=== PATIENT | male | born 1980 | race Caucasian/White ===

== ENCOUNTER 2018-04-01 11:34 | Inpatient (IN) | payer OTHER ==
[2018-04-01 14:03] VITALS: BMI 24.3
--- NOTE | 2018-04-01 16:22 | HP ---
CIWA Score - CIWA Score Nausea/Vomitin-No Nausea/No Vomiting Muscle Tremors: 3 Anxiety: 4-Mod. Anxious/Guarded Agitation: 4-Moderately Restless Paroxysmal Sweats: 4-Forehead w/Sweat Beads Orientation: 0-Oriented Tacttile Disturbances: 0-None Auditory Disturbances: 0-None Visual Disturbances: 0-None Headache: 2-Mild CIWA-Ar Total Score: 17 Admission [facility] - HPI Chief Complaint: Here for alcohol detox. C/o withdrawal. Allergies/Adverse Reactions: Allergies Allergy/AdvReac Type Severity Reaction Status Date / Time No Known Allergies Allergy Verified 04/01/18 14:57 History of Present Illness: Hx Opiate used disorder since age 11. Currently on Suboxone 8/2mg TID with continued intermittent use of heroin. Last heroin use today, IV. Suboxone prescribed by Dr. Masterson at the [facility] . Also prescribed zolpidem for hx. sleep disorder Hx. Cocaine use since age 12. Currently uses daily IV. Here for alcohol detox and drinks 2- 6 packs beer and 1 pint Vodka daily. Berto has anxiety, bipolar and schizophrenia. Denies suicide/violent ideations. Buys street Klonopin for anxiety. Multiple detoxes for alcohol, heroin, and benzo. Exam Limitations: No Limitations - Ebola screening Have you traveled outside of the country in the last 21 days: No Have you had contact with anyone from an Ebola affected area: No Have you been sick,other than usual withdrawal symptoms: No Do you have a fever: No - Review of Systems Constitutional: Diaphoresis, Changes in sleep (Unable to sleep for years.) Respiratory: reports: Other (Hx. asthma since age 7. Symptoms include wheezing and coughing 2-3x/wk. Relieves w/ albuterol MDI) Cardiac: reports: No Symptoms Reported GI: reports: Indigestion (Heart burn for years. Rx'd w/ TUMS) : reports: No Symptoms Reported Musculoskeletal: reports: Joint Pain ((R) ankle painful to touch - states twisted it years ago.) Neuro: reports: Tremors Endocrine: reports: No Symptoms Reported Hematology: reports: Anemia (States hx. anemia - unknown type.) Psychiatric: reports: Orientated x3, Anxious (Has anxiety disorder.), other ( Hx. Schizophrenia and bipolar disorder. Currently on meds. Denies suicide or violent ideation.) Patient History - Patient Medical History Hx Asthma: Yes (Uses albuterol inhaler as needed 2-3 x/week. ) Hx Chronic Obstructive Pulmonary Disease (COPD): No Hx Cancer: No Hx Cardiac Disorders: No Hx Congestive Heart Failure: No Hx Hypertension: No Hx Hypercholesterolemia: No Hx Pacemaker: No HX Cerebrovascular Accident: No Hx Seizures: No Hx Diabetes: No Hx Gastrointestinal Disorders: No Hx Liver Disease: No Hx Genitourinary Disorders: No Hx Sexually Transmitted Disorders: No Hx Renal Disease (ESRD): No Hx Thyroid Disease: No Hx Hepatitis C: Yes (Was treated w/ Harvoni in 2017. ) Hx Depression: Yes (Denies suicide/violent ideation.) Hx Suicide Attempt: No Hx Bipolar Disorder: Yes Hx Schizophrenia: Yes - Patient Surgical History Past Surgical History: Yes Hx Neurologic Surgery: No Hx Cataract Extraction: No Hx Cardiac Surgery: No Hx Lung Surgery: Yes (chest tube, left) Hx Breast Surgery: No Hx Breast Biopsy: No Hx Abdominal Surgery: No Hx Appendectomy: No Hx Cholecystectomy: No Hx Genitourinary Surgery: No Hx Section: No Hx Orthopedic Surgery: Yes (fx, right leg in 2012) Anesthesia Reaction: No - PPD History Previous Implant?: Yes Documented Results: Negative w/o proof - Smoking Cessation Smoking history: Current every day smoker Have you smoked in the past 12 months: Yes Aproximately how many cigarettes per day: 10 Hx Chewing Tobacco Use: No Initiated information on smoking cessation: Yes 'Breaking Loose' booklet given: 04/01/18 - Substance & Tx. History Hx Alcohol Use: Yes Hx Substance Use: Yes Substance Use Type: Alcohol, Cocaine, Heroin, Marijuana, Opiates Hx Substance Use Treatment: Yes (Several detox attempts; currently on Suboxone.) - Substances Abused Heroin Route: Injection Frequency: 3-6 times per week Amount used: 2 bags Age of first use: 11 (Uses despite being on Suboxone) Date of Last Use: 04/01/18 (9 am ) Cocaine Route: Injection Frequency: Daily Amount used: $50-100 Age of first use: 12 Date of Last Use: 04/01/18 (w/heroin) Alcohol-beer/whisky Route: Oral Frequency: Daily Amount used: 2-6 pks. beer/1 liter vodka Age of first use: 9 Date of Last Use: 04/01/18 (1 pm) Benzodiazepine (Klonopin) Route: Oral Frequency: Daily Amount used: 2 Age of first use: 12 Date of Last Use: 04/01/18 (Also uses xanax) Marijuana/Hashish Route: Inhalation Frequency: 3-6 times per week Amount used: 1/4 blunt Age of first use: 11 Date of Last Use: 03/26/18 Family Disease History - Family Disease History Family Disease History: Heart Disease: Mother (Irregular beat, asthma ), Respiratory: Mother, Sister (asthma) Admission Physical Exam S - Vital Signs Vital Signs: Vital Signs - 24 hr 04/01/18 14:00 Temperature 97.9 F Pulse Rate 68 Respiratory 20 Rate Blood Pressure 128/58 - Physical General Appearance: Yes: Appropriately Dressed, Mild Distress, Tremorous, Sweating, Anxious HEENTM: Yes: EOMI, Hearing grossly Normal, Normal Voice, ROBERTO CARLOS Respiratory: Yes: Lungs Clear, Normal Breath Sounds, No Respiratory Distress, No Accessory Muscle Use Neck: Yes: No masses,lesions,Nodules, Supple Breast: Yes: Breast Exam Deferred Cardiology: Yes: Regular Rhythm, Regular Rate, S1, S2 Abdominal: Yes: Normal Bowel Sounds, Non Tender, Flat, Soft Genitourinary: Yes: Within Normal Limits Back: Yes: Within Normal Limits Musculoskeletal: Yes: Joint swelling (Mild swelling (R) ankle inner malleous. (+ ) tenderness upon palpation. FROM and FWB.) Extremities: Yes: Normal Capillary Refill, Tremors, Swelling (Mild non-pitting edema both hands (R) > (L). Cap refill less than 3 sec.) Neurological: Yes: chief orthoptist II-XII NML intact, Fully Oriented, Motor Strength 5/5 Integumentary: Yes: Dry (Dry skin and dry mucous membranes. Except for facial sweating.), Track Cox (both arms.) - Diagnostic (1) Heroin use disorder, moderate, on maintenance therapy, dependence Current Visit: Yes Status: Acute (2) Cocaine use disorder Current Visit: Yes Status: Acute (3) Alcohol withdrawal Current Visit: Yes Status: Acute Qualifiers: Complication of substance-induced condition: uncomplicated Qualified Code(s ): F10.230 - Alcohol dependence with withdrawal, uncomplicated (4) Moderate benzodiazepine use disorder Current Visit: Yes Status: Chronic (5) Tooth ache Current Visit: Yes Status: Acute (6) Cannabis use disorder, moderate, dependence Current Visit: Yes Status: Chronic (7) Asthma Current Visit: Yes Status: Chronic Qualifiers: Asthma persistence: unspecified Asthma complication type: unspecified (8) Nicotine use disorder Current Visit: Yes Status: Acute Cleared for Admission [facility] - Detox or Rehab [facility] Level of Care: Medically Managed Detox Regimen/Protocol: Valium S Breath Alcohol Content Breath Alcohol Content: 0 Urine Drug Screen - Results Drug Screen Negative: No Urine Drug Screen Results: THC-Marijuana, SIRENA-Cocaine, OPI-Opiates, BZO- Benzodiazepines
[2018-04-01] MEDS ORDERED: ALBUTEROL SO4 18 GM HFA INHALER IH PRN (17:49)
[2018-04-01] MEDS ORDERED: MAG HYDROX/AL HYDROX/SIMETH 30 ML UNIT-DOSE CUP PO PRN (18:02)
[2018-04-01] MEDS ORDERED: MENTHOL/PHENOL 1 EACH UD MM PRN (18:02)
[2018-04-01] MEDS ORDERED: IBUPROFEN 400 MG TABLET (FP) PO PRN (18:02)
[2018-04-01] MEDS ORDERED: guaiFENesin/D-METHORPHAN HB 10 ML UNIT-DOSE CUPS PO PRN (18:02)
[2018-04-01] MEDS ORDERED: LOPERAMIDE HCL 2 MG CAPSULE PO PRN (18:02)
[2018-04-01] MEDS ORDERED: P-EPHED 60MG/TRIPROLIDI 2.5MG TABLET PO PRN (18:02)
[2018-04-01] MEDS ORDERED: MAGNESIUM CITRATE 300 ML BOTTLE PO PRN (18:02)
[2018-04-01] MEDS ORDERED: hydrOXYzine PAMOATE 50 MG CAPSULE (FP) PO PRN (18:02)
[2018-04-01] MEDS ORDERED: MAGNESIUM HYDROX 2400MG/30ML ORAL SUSPENSION 30 ML CUP PO PRN (18:02)
[2018-04-01] MEDS ORDERED: BENZOCAINE 20 % GEL 9 GM TUBE MM PRN (18:07)
[2018-04-01] MEDS ORDERED: diazePAM 5 MG TABLET PO ONE (18:45)
--- NOTE | 2018-04-01 19:19 | PN ---
S Progress Note Note: Suboxone 8/2 mg SL dose verified via [employer]. Spoke w/ Dr. Pike, from [facility] at 7 pm and dose verification also verbally completed. Okay to give Suboxone. Will start Suboxone in am.
[2018-04-01] MEDS ORDERED: BUPRENORPHINE/NALOXONE 8 MG/2 MG FILM PACKET SL SCH (22:00)
[2018-04-01] MEDS ORDERED: MELATONIN 5 MG TABLETS PO PRN (22:00)
[2018-04-01] MEDS: diazePAM 5 MG TABLET PO SCH (22:34)
[2018-04-01] MEDS: THIAMINE HCL 100 MG TABLET (FP) PO SCH (22:34)
[2018-04-01] MEDS: BUPRENORPHINE/NALOXONE 8 MG/2 MG FILM PACKET SL SCH (22:34)
[2018-04-02 01:29] LABS: URINE APPEARANCE TURBID; URINE BILIRUBIN NEGATIVE (<2.0 mg/dL); URINE BLOOD NEGATIVE (NEGATIVE); URINE COLOR AMBER; URINE GLUCOSE (UA) NEGATIVE (NEGATIVE); URINE KETONE NEGATIVE (NEGATIVE); URINE LEUK ESTERASE NEGATIVE (NEGATIVE); URINE NITRITE NEGATIVE (NEGATIVE); URINE PROTEIN NEGATIVE (NEGATIVE); URINE UROBILINOGEN 4.0 E.U/dl mg/dL (0.2-1.0)
[2018-04-02] MEDS: diazePAM 5 MG TABLET PO SCH ×3 (05:20→22:21)
[2018-04-02] MEDS: BUPRENORPHINE/NALOXONE 8 MG/2 MG FILM PACKET SL SCH ×3 (05:21→22:21)
[2018-04-02] MEDS: NICOTINE POLACRILEX 2 MG GUM BC PRN ×3 (05:39→23:08)
[2018-04-02] MEDS ORDERED: BUPRENORPHINE/NALOXONE 8 MG/2 MG FILM PACKET SL SCH (06:00)
--- NOTE | 2018-04-02 08:47 | EKG ---
Test Reason : Blood Pressure : / mmHG Vent. Rate : 063 BPM Atrial Rate : 063 BPM P-R Int : 140 ms QRS Dur : 080 ms QT Int : 412 ms P-R-T Axes : 069 035 042 degrees QTc Int : 421 ms NORMAL SINUS RHYTHM WITH SINUS ARRHYTHMIA NORMAL ECG NO PREVIOUS ECGS AVAILABLE Confirmed by MECHELLE HOPE, CLARENCE ([id number]) on 04/02/2018 8:47:16 AM Referred By: Confirmed By:CLARENCE MIN MD
--- NOTE | 2018-04-02 09:54 | CONSULT ---
[facility] Psychiatric Consult - Data Date of interview: 04/02/18 Admission source: [facility] Identifying data: Readmission to [facility] for this 37 y/o male seeking detox treatment on for heroin,alcohol,cocaine,cannabis and benzodiazepine dependence.Patient is ,a father of two,domiciled, unemployed and supported on SSI benefits. Substance Abuse History: Confirmed by the patient in this session.Details in current [facility] report as follows : Smoking history: Current every day smoker. Have you smoked in the past 12 months: Yes. Aproximately how many cigarettes per day: 10. Hx Chewing Tobacco Use: No. Initiated information on smoking cessation: Yes. 'Breaking Loose' booklet given: 04/01/18. - Substance & Tx. History. Hx Alcohol Use: Yes. Hx Substance Use: Yes. Substance Use Type: Alcohol, Cocaine, Heroin, Marijuana, Opiates. Hx Substance Use Treatment: Yes ( Several detox attempts; currently on Suboxone.). - Substances Abused. Heroin. Route: Injection. Frequency: 3-6 times per week. Amount used: 2 bags. Age of first use: 11 (Uses despite being on Suboxone). Date of Last Use : 04/01/18 (9 am ). Cocaine. Route: Injection. Frequency: Daily. Amount used: $50-100. Age of first use: 12. Date of Last Use: 04/01/18 (w/heroin). * * Alcohol-beer/whisky. Route: Oral. Frequency: Daily. Amount used: 2-6 pks. beer/1 liter vodka. Age of first use: 9. Date of Last Use: 04/01/18 (1 pm). Benzodiazepine (Klonopin). Route: Oral. Frequency: Daily. Amount used: 2. Age of first use: 12. Date of Last Use: 04/01/18 (Also uses xanax). Marijuana/Hashish. Route: Inhalation. Frequency: 3-6 times per week. Amount used: 1/4 blunt. Age of first use: 11. Date of Last Use: 03/26/18 Medical History: Bronchial asthma,hepatitis C (harvoni),antecedent of left lung surgery and a history of orthosurgery for fracture of right leg (2012). Psychiatric History: Patient admits to a distant history of multiple psychiatric hospitalizations (names of institutions not recalled).Diagnosed with " Bipolar Disorder and Schizophrenia ".Maintained on a regimen of olanzapine 20 mg/hs + ambien 10 mg/hs.Mr Sam gets his outpatient psychiatric services at the [facility] in the [place].On suboxone maintenance.Patient endorses a history of several suicide attempts via various means (hanging,self-cutting,jumping onto traffic). Physical/Sexual Abuse/Trauma History: Patient denies. Additional Comment: Urine Drug Screen Results: THC-Marijuana, SIRENA-Cocaine, OPI- Opiates, BZO-Benzodiazepines.Noted. Mental Status Exam - Mental Status Exam Alert and Oriented to: Time, Place, Person Cognitive Function: Good Patient Appearance: Disheveled Mood: Nervous, Withdrawn, Anxious Affect: Mood Congruent Patient Behavior: Fatigued, Cooperative Speech Pattern: Clear Voice Loudness: Normal Thought Process: Goal Oriented Thought Disorder: Not Present Hallucinations: Denies Suicidal Ideation: Denies Homicidal Ideation: Denies Insight/Judgement: Poor Sleep: Poorly, Difficulty falling asleep Appetite: Fair Muscle strength/Tone: Normal Gait/Station: Normal Psychiatric Findings - Problem List ([place] 1, 2,3) (1) Opioid dependence on agonist therapy Current Visit: Yes Status: Acute (2) Cocaine dependence Current Visit: Yes Status: Acute (3) Cannabis dependence Current Visit: Yes Status: Acute (4) Alcohol dependence Current Visit: Yes Status: Acute (5) Benzodiazepine dependence Current Visit: Yes Status: Acute (6) Nicotine dependence Current Visit: Yes Status: Acute (7) Substance induced mood disorder Current Visit: Yes Status: Acute (8) Schizoaffective disorder Current Visit: Yes Status: Suspected (9) Insomnia Current Visit: Yes Status: Acute - Initial Treatment Plan Initial Treatment Plan: Psychoeducation.Sleep hygiene.Detoxification in progress.Medications : olanzapine 20 mg po hs + ambien 10 mg po hs prn.Side effects/benefits of both drugs are discussed with the patient.Mr Sam consents to this plan of care.Observation.
[2018-04-02] MEDS: NICOTINE 14 MG/24 HOURS TOPICAL PATCH TD SCH (10:06)
[2018-04-02] MEDS: PRENATAL VITAMINS W/ FOLIC ACID TABLET (FP) PO SCH (10:06)
[2018-04-02 10:07] LABS: HEMATOCRIT 33.6 % (35.4-49); HEMOGLOBIN 10.9 GM/dL (11.7-16.9); MCH 28.8 pg (25.7-33.7); MCHC 32.4 g/dl (32.0-35.9); MEAN CELL VOLUME 88.8 fl (80-96); MEAN PLT VOLUME 9.6 fl (7.5-11.1); PLATELET COUNT 158 K/MM3 (134-434); RBC 3.78 M/mm3 (4.00-5.60); RDW 12.6 % (11.9-15.9); WHITE BLOOD COUNT 4.2 K/mm3 (4.0-10.0)
[2018-04-02] MEDS: diazePAM 5 MG TABLET PO PRN (10:07)
[2018-04-02 10:55] LABS: CHLORIDE 109 mmol/L (98-107); SODIUM 142 mmol/L (136-145)
[2018-04-02 11:09] LABS: ALBUMIN 3.3 g/dl (3.4-5.0); ALK PHOS 69 U/L (45-117); ANION GAP 8 (8-16); BILIRUBIN,TOTAL 0.4 mg/dL (0.2-1.0); BLOOD UREA NITROGEN 19 mg/dL (7-18); CALCIUM 8.3 mg/dL (8.5-10.1); CO2 25 mmol/L (21-32); CREATININE 0.9 mg/dL (0.7-1.3); GLUCOSE,RANDOM 97 mg/dL (74-106); SGOT/AST 24 U/L (15-37); SGPT/ALT 20 U/L (12-78); TOT PROT 6.5 g/dl (6.4-8.2)
--- NOTE | 2018-04-02 15:01 | PN ---
[facility] CIWA - CIWA Score Nausea/Vomitin-No Nausea/No Vomiting Muscle Tremors: None Anxiety: 4-Mod. Anxious/Guarded Agitation: 3 Paroxysmal Sweats: 3 Orientation: 0-Oriented Tacttile Disturbances: 3-Moderate Itch/Numb/Burn Auditory Disturbances: 0-None Visual Disturbances: 3-Moderate Sensitivity Headache: 0-None Present CIWA-Ar Total Score: 16 [facility] Progress Note (SOAP) Subjective: Fatigue Interrupted Sleep, Anxious, Sweating. Objective: PATIENT A & O X 3, OBSERVED AMBULATING ON UNIT. NO ACUTE DISTRESS. 04/02/18 15:00 Vital Signs Temperature 96.8 F L 04/02/18 14:47 Pulse Rate 54 L 04/02/18 14:47 Respiratory Rate 18 04/02/18 14:47 Blood Pressure 96/65 04/02/18 14:47 O2 Sat by Pulse Oximetry (%) Laboratory Tests 04/01/18 04/02/18 04/02/18 20:25 07:50 07:50 WBC 4.2 RBC 3.78 L Hgb 10.9 L Hct 33.6 L MCV 88.8 MCH 28.8 MCHC 32.4 RDW 12.6 Plt Count 158 MPV 9.6 Sodium Potassium Chloride Carbon Dioxide Anion Gap BUN Creatinine Creat Clearance w eGFR Random Glucose Calcium Total Bilirubin AST ALT Alkaline Phosphatase Total Protein Albumin Urine Color Rossi Urine Appearance Turbid Urine pH 5.0 Ur Specific [place] 1.031 Urine Protein Negative Urine Glucose (UA) Negative Urine Ketones Negative Urine Blood Negative Urine Nitrite Negative Urine Bilirubin Negative Urine Urobilinogen 4.0 e.u/dl Ur Leukocyte Esterase Negative RPR Titer HIV 1&2 Antibody Screen Negative HIV P24 Antigen Negative 04/02/18 04/02/18 07:50 07:50 WBC RBC Hgb Hct MCV MCH MCHC RDW Plt Count MPV Sodium 142 Potassium 4.0 Chloride 109 H Carbon Dioxide 25 Anion Gap 8 BUN 19 H Creatinine 0.9 Creat Clearance w eGFR > 60 Random Glucose 97 Calcium 8.3 L Total Bilirubin 0.4 AST 24 ALT 20 Alkaline Phosphatase 69 Total Protein 6.5 Albumin 3.3 L Urine Color Urine Appearance Urine pH Ur Specific [place] Urine Protein Urine Glucose (UA) Urine Ketones Urine Blood Urine Nitrite Urine Bilirubin Urine Urobilinogen Ur Leukocyte Esterase RPR Titer Nonreactive HIV 1&2 Antibody Screen HIV P24 Antigen LABS NOTED. Assessment: 04/02/18 15:00 WITHDRAWAL SYMPTOMS. Plan: CONTINUE DETOX. INCREASE DAILY PO FLUID INTAKE.
[2018-04-02] MEDS ORDERED: ZOLPIDEM TARTRATE 10 MG TABLET (PARK CARE ONLY) PO PRN (22:00)
[2018-04-02] MEDS ORDERED: OLANZapine 10 MG TABLET PO SCH (22:00)
[2018-04-02] MEDS: THIAMINE HCL 100 MG TABLET (FP) PO SCH (22:21)
[2018-04-03] MEDS: diazePAM 5 MG TABLET PO PRN (00:36)
[2018-04-03] MEDS: BUPRENORPHINE/NALOXONE 8 MG/2 MG FILM PACKET SL SCH (05:12)
[2018-04-03] MEDS: ACETAMINOPHEN 325 MG TABLET (FP) PO PRN ×2 (05:22→10:06)
[2018-04-03 06:03] VITALS: PULSE 47
[2018-04-03 09:45] VITALS: BP 100/63; TEMP 96.3
[2018-04-03] MEDS ORDERED: diazePAM 5 MG TABLET PO SCH (10:00)
[2018-04-03] MEDS: PRENATAL VITAMINS W/ FOLIC ACID TABLET (FP) PO SCH (10:05)
[2018-04-03] MEDS: NICOTINE 14 MG/24 HOURS TOPICAL PATCH TD SCH (10:05)
--- NOTE | 2018-04-03 13:33 | DS ---
[facility] Detox Discharge Summary Admission Date: 04/01/18 Discharge Date: 04/03/18 - History Present History: Alcohol Dependence, Cannabis Dependence, Cocaine Dependence, Sedative Dependence, MMTP Additional Comments: Patient was reported by his peer that he was selling percocet on the unit. Patient refused to cooperate with security searching his property and he decided to leave [place]. Pertinent Past History: Asthma Hepatitis C - Physical Exam Results Vital Signs: Vital Signs Temperature 96.3 F L 04/03/18 09:44 Pulse Rate 47 L 04/03/18 09:44 Respiratory Rate 18 04/03/18 09:44 Blood Pressure 100/63 04/03/18 09:44 O2 Sat by Pulse Oximetry (%) Pertinent Admission Physical Exam Findings: Withdrawal symptoms Laboratory Tests 04/01/18 04/02/18 04/02/18 20:25 07:50 07:50 WBC 4.2 RBC 3.78 L Hgb 10.9 L Hct 33.6 L MCV 88.8 MCH 28.8 MCHC 32.4 RDW 12.6 Plt Count 158 MPV 9.6 Sodium Potassium Chloride Carbon Dioxide Anion Gap BUN Creatinine Creat Clearance w eGFR Random Glucose Calcium Total Bilirubin AST ALT Alkaline Phosphatase Total Protein Albumin Urine Color Rossi Urine Appearance Turbid Urine pH 5.0 Ur Specific [place] 1.031 Urine Protein Negative Urine Glucose (UA) Negative Urine Ketones Negative Urine Blood Negative Urine Nitrite Negative Urine Bilirubin Negative Urine Urobilinogen 4.0 e.u/dl Ur Leukocyte Esterase Negative RPR Titer HIV 1&2 Antibody Screen Negative HIV P24 Antigen Negative 04/02/18 04/02/18 07:50 07:50 WBC RBC Hgb Hct MCV MCH MCHC RDW Plt Count MPV Sodium 142 Potassium 4.0 Chloride 109 H Carbon Dioxide 25 Anion Gap 8 BUN 19 H Creatinine 0.9 Creat Clearance w eGFR > 60 Random Glucose 97 Calcium 8.3 L Total Bilirubin 0.4 AST 24 ALT 20 Alkaline Phosphatase 69 Total Protein 6.5 Albumin 3.3 L Urine Color Urine Appearance Urine pH Ur Specific [place] Urine Protein Urine Glucose (UA) Urine Ketones Urine Blood Urine Nitrite Urine Bilirubin Urine Urobilinogen Ur Leukocyte Esterase RPR Titer Nonreactive HIV 1&2 Antibody Screen HIV P24 Antigen Labs reviewed - Medication Discharge Medications: Ambulatory Orders Albuterol Sulfate Inhaler - [Ventolin Hfa Inhaler -] 2 inh PO Q4H PRN 04/01/18 Buprenorphine/Naloxone [Suboxone 8Mg/2Mg Sl Film -] 1 each SL TID 04/01/18 Olanzapine [Zyprexa] 20 mg PO DAILY 04/01/18 Zolpidem Tartrate [Ambien] 10 mg PO HS 04/01/18 Olanzapine [Zyprexa] 20 mg PO HS #30 tablet 04/02/18 - Diagnosis (1) Alcohol dependence with withdrawal, uncomplicated Status: Acute (2) Sedative, hypnotic or anxiolytic dependence, uncomplicated Status: Acute (3) Hepatitis C Status: Chronic (4) Depression Status: Chronic (5) Cannabis dependence Status: Chronic (6) Cocaine dependence Status: Chronic (7) Insomnia Status: Acute (8) Nicotine use disorder Status: Chronic (9) Opioid dependence on agonist therapy Status: Acute (10) Asthma Status: Chronic Qualifiers: Asthma severity: mild Asthma persistence: unspecified Asthma complication type: unspecified Qualified Code(s): J45.998 - Other asthma (11) Schizoaffective disorder Status: Chronic - AMA Did Patient Leave Against Medical Advice: Yes (F/U with your PCP within 3 days)
[2018-04-05] MEDS ORDERED: diazePAM 5 MG TABLET PO SCH (10:00)
== END 2018-04-03 13:00 | disposition left against medical advice (07) | DRG 770 ==
LOC: YASAS 11:34 → Y3N 18:20
PROVIDERS: ADMIT Internal Medicine; ATTEND Internal Medicine
PROC: HZ2ZZZZ Detoxification Services for Substance Abuse Treatment (ICD-10-PCS; principal; 2018-04-01)
DX: F11.20 Opioid dependence, uncomplicated (principal); F13.230 Sedative, hypnotic or anxiolytic dependence with withdrawal, uncomplicated; F10.230 Alcohol dependence with withdrawal, uncomplicated; F14.20 Cocaine dependence, uncomplicated; F12.20 Cannabis dependence, uncomplicated; F17.210 Nicotine dependence, cigarettes, uncomplicated; F31.9 Bipolar disorder, unspecified; F19.24 Other psychoactive substance dependence with psychoactive substance-induced mood disorder; F25.9 Schizoaffective disorder, unspecified; G47.00 Insomnia, unspecified; K08.89 Other specified disorders of teeth and supporting structures; J45.909 Unspecified asthma, uncomplicated; B18.2 Chronic viral hepatitis C
CPT/HCPCS: 36415; 80053; 81003; 85027; 86593; 87389; 93005; 93010

== ENCOUNTER 2019-09-12 14:32 | Inpatient (IN) | payer OTHER ==
[2019-09-12 17:12] VITALS: BMI 23.6
--- NOTE | 2019-09-12 20:24 | HP ---
CIWA Score Nausea/Vomitin-No Nausea/No Vomiting Muscle Tremors: None Anxiety: 1-Mildly Anxious Agitation: 3 Paroxysmal Sweats: 3 (Increased facial moisture) Orientation: 1-Uncertain about Date Tacttile Disturbances: 0-None Auditory Disturbances: 0-None Visual Disturbances: 0-None Headache: 0-None Present CIWA-Ar Total Score: 8 - Admission Criteria OASAS Guidelines: Admission for Medically Managed Detox: Requires at least one of the followin. CIWA greater than 12 2. Seizures within the past 24 hours 3. Delirium tremens within the past 24 hours 4. Hallucinations within the past 24 hours 5. Acute intervention needed for co occurring medical disorder 6. Acute intervention needed for co occurring psychiatric disorder 7. Severe withdrawal that cannot be handled at a lower level of care (continued vomiting, continued diarrhea, abnormal vital signs) requiring intravenous medication and/or fluids 8. Patient presents the following: Acute intervention needed for co-occurring med or psych disorder Admission Criteria Met: Admission criteria met Admitting History and Physical - Smoking History Smoking history: Current every day smoker Have you smoked in the past 12 months: Yes Aproximately how many cigarettes per day: 10 - Alcohol/Substance Use Hx Alcohol Use: Yes Admission ROS [facility] Chief Complaint: I need to stop all these drugs. I need detox. Allergies/Adverse Reactions: Allergies Allergy/AdvReac Type Severity Reaction Status Date / Time No Known Allergies Allergy Verified 09/12/19 16:59 History of Present Illness: 38 yo presents w/ poly-substance use disorder seeking detox. Hx Overdose 2 weeks ago; blackouts - Last 1 week ago. Denies seizures. Heroin use began at age 9. Currently using 1-2 bundles IV w/ cocaine daily in mornings and uses Suboxone 3 strips at night. Last used heroin this a.m. last used Suboxone yesterday. Denies sharing needles or works. Has a Narcan kit at home. Alcohol use began at age 7. Currently drinks 8 - 16 oz beers daily. Last drink @ about 6 a.m. Xanax use began at age 13. Uses 8 mg PO daily. Last used 2 mg about 6 a.m. Cocaine use began at age 11. Uses IV w/ heroin daily. Marijuana use began at age 11. Nicotine use began at age 7. Smokes 10 cig/day. PMHx: Asthma, Hep C (Rx'd); MHHx:Insomnia. Bipolar Schizophrenic. Sees a MH Provider in the community. On meds - states takes daily. Denies thoughts of harming self or others. SHx: Homeless. Unemployed.(SSI). Denies legal issues. Patient Name: Abdi Sam Date: 1980 Address: [place] [address] Sex: Male Rx Written Rx Dispensed Drug Quantity Days Supply Prescriber Name 08/23/2019 08/23/2019 buprenorphine-naloxone 8-2 mg sl film 90 30 Denis Masterson MD 07/20/2019 07/20/2019 buprenorphine-naloxone 8-2 mg sl film 90 30 Denis Masterson MD Patient Name: Abdi Sam Date: 1980 Address: [place] [address] Sex: Male Rx Written Rx Dispensed Drug Quantity Days Supply Prescriber Name 05/19/2019 05/19/2019 buprenorphine-naloxone 8-2 mg sl film 90 30 Denis Masterson MD 05/19/2019 05/19/2019 zolpidem tartrate 10 mg tablet 30 30 Denis Masterson MD 04/20/2019 04/26/2019 zolpidem tartrate 10 mg tablet 30 30 Denis Masterson MD 04/20/2019 04/26/2019 buprenorphine-naloxone 8-2 mg sl film 90 30 Denis Masterson MD 09/15/2018 03/20/2019 zolpidem tartrate 10 mg tablet 30 30 Denis Masterson MD 02/17/2019 03/20/2019 buprenorphine-naloxone 8-2 mg sl film 90 30 Denis Masterson MD 09/15/2018 03/20/2019 zolpidem tartrate 10 mg tablet 30 30 Denis Masterson MD 02/17/2019 03/20/2019 buprenorphine-naloxone 8-2 mg sl film 90 30 Denis Masterson MD 01/19/2019 02/17/2019 zolpidem tartrate 10 mg tablet 30 30 Denis Masterson MD 02/17/2019 02/17/2019 buprenorphine-naloxone 8-2 mg sl film 90 30 Denis Masterson MD 11/16/2018 01/19/2019 zolpidem tartrate 10 mg tablet 30 30 Denis Masterson MD 01/19/2019 01/19/2019 buprenorphine-naloxone 8-2 mg sl film 90 30 Denis Masterson MD 11/16/2018 12/16/2018 zolpidem tartrate 10 mg tablet 30 30 Denis Masterson MD 12/16/2018 12/16/2018 suboxone 8 mg-2 mg sl film 90 30 Denis Masterson MD 09/15/2018 11/16/2018 zolpidem tartrate 10 mg tablet 30 30 Denis Masterson MD 11/16/2018 11/16/2018 suboxone 8 mg-2 mg sl film 90 30 Denis Masterson MD 09/15/2018 10/19/2018 zolpidem tartrate 10 mg tablet 30 30 Denis Masterson MD 10/19/2018 10/19/2018 suboxone 8 mg-2 mg sl film 90 30 Denis Masterson MD 08/18/2018 09/16/2018 zolpidem tartrate 10 mg tablet 30 30 Denis Masterson MD 09/15/2018 09/16/2018 suboxone 8 mg-2 mg sl film 90 30 Denis Masterson MD Exam Limitations: No Limitations - Ebola screening Have you traveled outside of the country in the last 21 days: No Have you had contact with anyone from an Ebola affected area: No Have you been sick,other than usual withdrawal symptoms: No Do you have a fever: No - Review of Systems Constitutional: Chills, Changes in sleep (Difficulty falling and staying asleep. ) EENT: reports: Blurred Vision, Nose Congestion, Dental Problems (Intermittent tooth pain. Chews and swallows ok) Respiratory: reports: No Symptoms reported Cardiac: reports: No Symptoms Reported GI: reports: Constipated (Strains to move bowels - hard to push out. Last BM today.), Indigestion (Heart burn - takes Pepcid), Abdominal cramping : reports: No Symptoms Reported Musculoskeletal: reports: Back Pain (r/t withdrawal), Other (Leg and foot pain when walks.) Integumentary: reports: No Symptoms Reported Neuro: reports: Numbness (Intermittent numbness in fingers in mornings) Endocrine: reports: No Symptoms Reported Hematology: reports: No Symptoms Reported Psychiatric: reports: Mood/Affect Appropiate, Orientated x3 (UNSURE OF EXACT DATE. kNOWS MONTH AND YEAR), Anxious Patient History - Patient Medical History Hx Asthma: Yes (Uses albuterol inhaler as needed 2-3 x/week. ) Hx Chronic Obstructive Pulmonary Disease (COPD): No Hx Cancer: No Hx Cardiac Disorders: No Hx Congestive Heart Failure: No Hx Hypertension: No Hx Hypercholesterolemia: No Hx Pacemaker: No HX Cerebrovascular Accident: No Hx Seizures: No Hx Diabetes: No Hx Gastrointestinal Disorders: No Hx Liver Disease: No Hx Genitourinary Disorders: No Hx Sexually Transmitted Disorders: No Hx Renal Disease (ESRD): No Hx Thyroid Disease: No Hx Hepatitis C: Yes (Was treated w/ Harvoni in 2017. ) Hx Depression: Yes (Denies suicide/violent ideation.) Hx Suicide Attempt: No Hx Bipolar Disorder: Yes Hx Schizophrenia: Yes - Patient Surgical History Past Surgical History: Yes Hx Neurologic Surgery: No Hx Cataract Extraction: No Hx Cardiac Surgery: No Hx Lung Surgery: Yes (chest tube, left) Hx Breast Surgery: No Hx Breast Biopsy: No Hx Abdominal Surgery: No Hx Appendectomy: No Hx Cholecystectomy: No Hx Genitourinary Surgery: No Hx Section: No Hx Orthopedic Surgery: Yes (fx, right leg in 2012) Anesthesia Reaction: No - PPD History Previous Implant?: Yes Documented Results: Negative w/proof Implanted On Prior [facility] Admission?: Yes Date: 04/03/18 PPD to be Administered?: No - Smoking Cessation Smoking history: Current every day smoker Have you smoked in the past 12 months: Yes Aproximately how many cigarettes per day: 10 Hx Chewing Tobacco Use: No Initiated information on smoking cessation: Yes 'Breaking Loose' booklet given: 09/12/19 - Substances abused Alcohol Substance route: Oral Frequency: Daily Amount used: 8 beers Age of first use: 7 Date of last use: 09/12/19 Heroin Substance route: Injection Frequency: Daily Amount used: 2 to 3 bundles Age of first use: 9 Date of last use: 09/11/19 Cocaine Substance route: Injection Frequency: Daily Amount used: 60 dollars Age of first use: 11 Date of last use: 09/11/19 Alprazolam (Xanax) Substance route: Oral Frequency: Daily Amount used: 4 of 2 mg Age of first use: 13 Date of last use: 09/12/19 Other Other (specify): percocet Substance route: Oral Frequency: 1-2 times per week Amount used: ' not too many'. Age of first use: 16 Date of last use: 09/11/[address] [facility] - Vital Signs Vital Signs: Vital Signs - 24 hr 09/12/19 16:58 Temperature 98.1 F Pulse Rate 76 Respiratory 18 Rate Blood Pressure 97/64 - Physical General Appearance: Yes: Mild Distress, Thin, Sweating (Increased facial moisture), Anxious HEENTM: Yes: EOMI, Hearing grossly Normal, Normocephalic, Normal Voice, ROBERTO CARLOS ( Pupils = 3 mm), Pharynx Normal, Nasal Congestion Respiratory: Yes: Lungs Clear (Pulse Ox = 98 %), Normal Breath Sounds, No Respiratory Distress Neck: Yes: No masses,lesions,Nodules, Supple Breast: Yes: Breast Exam Deferred Cardiology: Yes: Regular Rhythm, Regular Rate (HR: 68), S1, S2 Abdominal: Yes: Normal Bowel Sounds, Non Tender, Flat, Soft Genitourinary: Yes: Within Normal Limits Back: Yes: Normal Inspection Musculoskeletal: Yes: full range of Motion, Gait Steady Extremities: Yes: Normal Capillary Refill, Other (Tenderness (L) transmetatarsal area. 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 No increased erythema, warmth, or tenderness.) Lymphatic: Yes: Within Normal Limits - Diagnostic (1) History of asthma Current Visit: Yes Status: Chronic (2) Alcohol dependence with withdrawal, uncomplicated Current Visit: Yes Status: Acute (3) Heroin use disorder, moderate, on maintenance therapy, dependence Current Visit: Yes Status: Chronic (4) Nicotine dependence Current Visit: Yes Status: Chronic Qualifiers: Nicotine product type: cigarettes Substance use status: uncomplicated Qualified Code(s): F17.210 - Nicotine dependence, cigarettes, uncomplicated (5) Sedative, hypnotic or anxiolytic dependence, uncomplicated Current Visit: Yes Status: Acute (6) Cannabis dependence Current Visit: Yes Status: Chronic (7) Cocaine dependence Current Visit: Yes Status: Chronic Qualifiers: Substance use status: uncomplicated Qualified Code(s): F14.20 - Cocaine dependence, uncomplicated Cleared for Admission S - Detox or Rehab [facility] Level of Care: Medically Managed Detox Regimen/Protocol: Librium Claeared for Rehab Admission: No Breathalyzer - Breathalyzer Breathalyzer: 0 Urine Drug Screen - Test Device Lot number: [id number] Expiration date: 05/07/21 - Control Is test valid?: Yes - Results Drug screen NEGATIVE: No Urine drug screen results: THC-Marijuana, SIRENA-Cocaine, MOP-Opiates, OXY- Oxycodone, BUP-Suboxone Inpatient Rehab Admission - Rehab Decision to Admit Inpatient rehab admission?: No
[2019-09-12] MEDS ORDERED: BISMUTH SUBSALICYLATE 524 MG/30 ML UD PO PRN (20:56)
[2019-09-12] MEDS ORDERED: MENTHOL/PHENOL 1 EACH UD MM PRN (20:56)
[2019-09-12] MEDS ORDERED: ACETAMINOPHEN 325 MG TABLET (FP) PO PRN ×2 (20:56)
[2019-09-12] MEDS ORDERED: METHOCARBAMOL 500 MG TABLET PO PRN (20:56)
[2019-09-12] MEDS ORDERED: IBUPROFEN 400 MG TABLET (FP) PO PRN (20:56)
[2019-09-12] MEDS ORDERED: MELATONIN 5 MG TABLETS PO PRN (20:56)
[2019-09-12] MEDS ORDERED: MAGNESIUM CITRATE 300 ML BOTTLE PO PRN (20:56)
[2019-09-12] MEDS ORDERED: MAG HYDROX/AL HYDROX/SIMETH 30 ML UNIT-DOSE CUP PO PRN (20:56)
[2019-09-12] MEDS ORDERED: MAGNESIUM HYDROX 2400MG/30ML ORAL SUSPENSION 30 ML CUP PO PRN (20:56)
[2019-09-12] MEDS: NICOTINE POLACRILEX 2 MG GUM BUC PRN (22:05)
[2019-09-12] MEDS: THIAMINE HCL 100 MG TABLET (FP) PO SCH (22:05)
[2019-09-12] MEDS ORDERED: chlordiazePOXIDE HCL 25 MG CAPSULE PO ONE (22:56)
[2019-09-13] MEDS: chlordiazePOXIDE HCL 25 MG CAPSULE PO SCH ×3 (06:30→21:16)
[2019-09-13] MEDS: BUPRENORPHINE/NALOXONE 8 MG/2 MG FILM PACKET SL SCH ×3 (06:31→21:15)
[2019-09-13] MEDS: DOCUSATE SODIUM 100 MG CAPSULE (FP) PO SCH ×2 (10:22→21:16)
[2019-09-13] MEDS: PANTOPRAZOLE 40 MG TABLET (FP) PO SCH (10:22)
[2019-09-13] MEDS: NICOTINE 14 MG/24 HOURS TOPICAL PATCH TD SCH (10:22)
[2019-09-13] MEDS: NICOTINE POLACRILEX 2 MG GUM BUC PRN ×2 (10:22→17:04)
[2019-09-13] MEDS: PRENATAL VITAMINS W/ FOLIC ACID TABLET (FP) PO SCH (10:22)
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
[2019-09-13] MEDS ORDERED: chlordiazePOXIDE HCL 10 MG CAPSULE PO PRN (11:00)
--- NOTE | 2019-09-13 14:39 | PN ---
S CIWA - CIWA Score Nausea/Vomitin-Mild Nausea/No Vomiting Muscle Tremors: 2 Anxiety: 2 Agitation: 2 Paroxysmal Sweats: No Perspiration Orientation: 0-Oriented Tacttile Disturbances: 1-Very Mild Itch/Numbness Auditory Disturbances: 0-None Visual Disturbances: 0-None Headache: 1-Very Mild CIWA-Ar Total Score: 9 BHS Progress Note (SOAP) Subjective: alert,irritable,anxious,interrupted sleep,pain in the body and back,tremor Objective: 09/13/19 14:38 Vital Signs Temperature 99.9 F H 09/13/19 13:28 Pulse Rate 64 09/13/19 13:28 Respiratory Rate 18 09/13/19 13:28 Blood Pressure 101/50 L 09/13/19 13:28 O2 Sat by Pulse Oximetry (%) 09/13/19 14:39 labs pending Assessment: 09/13/19 14:39 withdrawal symptom Plan: continue detox librium regimen,continue suboxone
[2019-09-13] MEDS: OLANZapine 10 MG TABLET PO SCH (21:16)
[2019-09-13] MEDS: THIAMINE HCL 100 MG TABLET (FP) PO SCH (21:16)
[2019-09-13] MEDS ORDERED: SUVOREXANT 10 MG TABLET PO PRN (22:00)
[2019-09-14] MEDS: chlordiazePOXIDE 5 MG CAPSULE PO SCH ×3 (06:17→22:05)
[2019-09-14] MEDS: BUPRENORPHINE/NALOXONE 8 MG/2 MG FILM PACKET SL SCH ×3 (06:17→22:06)
[2019-09-14] MEDS: DOCUSATE SODIUM 100 MG CAPSULE (FP) PO SCH ×2 (10:07→22:06)
[2019-09-14] MEDS: PANTOPRAZOLE 40 MG TABLET (FP) PO SCH (10:07)
[2019-09-14] MEDS: PRENATAL VITAMINS W/ FOLIC ACID TABLET (FP) PO SCH (10:07)
[2019-09-14] MEDS: NICOTINE 14 MG/24 HOURS TOPICAL PATCH TD SCH (10:07)
[2019-09-14] MEDS: NICOTINE POLACRILEX 2 MG GUM BUC PRN ×2 (10:10→17:37)
--- NOTE | 2019-09-14 11:35 | PN ---
S CIWA - CIWA Score Nausea/Vomitin-No Nausea/No Vomiting Muscle Tremors: 3 Anxiety: 2 Agitation: 2 Paroxysmal Sweats: No Perspiration Orientation: 0-Oriented Tacttile Disturbances: 0-None Auditory Disturbances: 0-None Visual Disturbances: 0-None Headache: 0-None Present CIWA-Ar Total Score: 7 BHS Progress Note (SOAP) Subjective: body aches nasal congestion Objective: 09/14/19 11:35 Vital Signs Temperature 96.3 F L 09/14/19 10:28 Pulse Rate 61 09/14/19 10:28 Respiratory Rate 18 09/14/19 10:28 Blood Pressure 95/56 L 09/14/19 10:28 O2 Sat by Pulse Oximetry (%) aaox3 ambulating no acute distress Assessment: 09/14/19 11:35 mild withdrawals Plan: continue detox increase fluids ocean spray prn
[2019-09-14] MEDS: SODIUM CHLORIDE NASAL SPRAY 44 ML BOTTLE NS PRN (21:07)
[2019-09-14] MEDS: THIAMINE HCL 100 MG TABLET (FP) PO SCH (22:06)
[2019-09-15] MEDS ORDERED: chlordiazePOXIDE HCL 10 MG CAPSULE PO PRN (00:01)
[2019-09-15] MEDS: OLANZapine 10 MG TABLET PO SCH ×2 (00:24→22:02)
[2019-09-15] MEDS: NICOTINE POLACRILEX 2 MG GUM BUC PRN ×4 (01:54→22:47)
[2019-09-15] MEDS: BUPRENORPHINE/NALOXONE 8 MG/2 MG FILM PACKET SL SCH ×3 (06:33→22:03)
[2019-09-15] MEDS: chlordiazePOXIDE HCL 10 MG CAPSULE PO SCH ×3 (06:33→22:02)
[2019-09-15] MEDS: SODIUM CHLORIDE NASAL SPRAY 44 ML BOTTLE NS PRN ×3 (06:34→22:02)
[2019-09-15] MEDS: NICOTINE 14 MG/24 HOURS TOPICAL PATCH TD SCH (10:06)
[2019-09-15] MEDS: DOCUSATE SODIUM 100 MG CAPSULE (FP) PO SCH ×2 (10:06→22:01)
[2019-09-15] MEDS: PANTOPRAZOLE 40 MG TABLET (FP) PO SCH (10:06)
[2019-09-15] MEDS: PRENATAL VITAMINS W/ FOLIC ACID TABLET (FP) PO SCH (10:06)
--- NOTE | 2019-09-15 13:55 | PN ---
S CIWA - CIWA Score Nausea/Vomitin-No Nausea/No Vomiting Muscle Tremors: 2 Anxiety: 0-No Anxiety, at Ease Agitation: 1-Slight > Activity Paroxysmal Sweats: No Perspiration Orientation: 0-Oriented Tacttile Disturbances: 0-None Auditory Disturbances: 0-None Visual Disturbances: 0-None Headache: 0-None Present CIWA-Ar Total Score: 3 BHS Progress Note (SOAP) Subjective: sweats anxiety Objective: 09/15/19 13:55 Vital Signs Temperature 96.3 F L 09/15/19 13:48 Pulse Rate 77 09/15/19 13:48 Respiratory Rate 18 09/15/19 13:48 Blood Pressure 121/70 09/15/19 13:48 O2 Sat by Pulse Oximetry (%) aaox3 ambulating no acute distress Assessment: 09/15/19 13:55 mild withdrawals Plan: continue detox d/c in am
[2019-09-15] MEDS: THIAMINE HCL 100 MG TABLET (FP) PO SCH (22:02)
[2019-09-16] MEDS: NICOTINE POLACRILEX 2 MG GUM BUC PRN ×2 (03:48→06:08)
[2019-09-16] MEDS ORDERED: chlordiazePOXIDE HCL 10 MG CAPSULE PO ONE (05:00)
[2019-09-16] MEDS: BUPRENORPHINE/NALOXONE 8 MG/2 MG FILM PACKET SL SCH (05:31)
[2019-09-16 06:00] VITALS: BP 100/66; PULSE 80; TEMP 96.6
--- NOTE | 2019-09-16 08:56 | DS ---
[facility] Detox Discharge Summary Admission Date: 09/12/19 Discharge Date: 09/16/19 - History Present History: Alcohol Dependence, Cannabis Dependence, Cocaine Dependence, Opioid Dependence, Sedative Dependence - Physical Exam Results Vital Signs: Vital Signs Temperature 96.6 F L 09/16/19 06:00 Pulse Rate 80 09/16/19 06:00 Respiratory Rate 18 09/16/19 06:00 Blood Pressure 100/66 09/16/19 06:00 O2 Sat by Pulse Oximetry (%) Pertinent Admission Physical Exam Findings: pt arrived in withdrawals Vital Signs Temperature 96.6 F L 09/16/19 06:00 Pulse Rate 80 09/16/19 06:00 Respiratory Rate 18 09/16/19 06:00 Blood Pressure 100/66 09/16/19 06:00 O2 Sat by Pulse Oximetry (%) today pt is aaox3 ambulating no acute distress no s/s of withdrawals - Treatment Hospital Course: Detox Protocol Followed, Detoxed Safely, Responded well, Discharged Condition Good, Rehab Referral Accepted Patient has Accepted a Rehab Referral to: pt declined rehab; referral provided - Medication Discharge Medications: Ambulatory Orders Albuterol Sulfate Inhaler - [Ventolin Hfa Inhaler -] 2 inh PO Q4H PRN 04/01/18 Buprenorphine/Naloxone [Suboxone 8Mg/2Mg Sl Film -] 1 each SL TID 04/01/18 Zolpidem Tartrate [Ambien] 10 mg PO HS 04/01/18 Olanzapine [Zyprexa] 20 mg PO HS #30 tablet 04/02/18 - Diagnosis (1) Alcohol dependence with withdrawal, uncomplicated Current Visit: Yes Status: Chronic (2) Cannabis dependence Current Visit: Yes Status: Chronic (3) Cocaine dependence Current Visit: Yes Status: Chronic Qualifiers: Substance use status: uncomplicated Qualified Code(s): F14.20 - Cocaine dependence, uncomplicated (4) Sedative, hypnotic or anxiolytic dependence, uncomplicated Current Visit: Yes Status: Chronic (5) Substance-induced sleep disorder Current Visit: Yes Status: Acute (6) Heroin use disorder, moderate, on maintenance therapy, dependence Current Visit: Yes Status: Chronic (7) History of asthma Current Visit: Yes Status: Chronic (8) Nicotine dependence Current Visit: Yes Status: Chronic Qualifiers: Nicotine product type: cigarettes Substance use status: uncomplicated Qualified Code(s): F17.210 - Nicotine dependence, cigarettes, uncomplicated (9) Alcohol dependence Current Visit: No Status: Acute Qualifiers: Substance use status: uncomplicated Qualified Code(s): F10.20 - Alcohol dependence, uncomplicated (10) Benzodiazepine dependence Current Visit: No Status: Acute (11) Insomnia Current Visit: No Status: Acute (12) Substance induced mood disorder Current Visit: No Status: Acute (13) Tooth ache Current Visit: No Status: Acute (14) Asthma Current Visit: No Status: Chronic Qualifiers: Asthma severity: mild Asthma persistence: unspecified Asthma complication type: unspecified (15) Cannabis use disorder, moderate, dependence Current Visit: No Status: Chronic (16) Depression Current Visit: No Status: Chronic (17) Moderate benzodiazepine use disorder Current Visit: No Status: Chronic (18) Nicotine use disorder Current Visit: No Status: Chronic (19) Opioid dependence on agonist therapy Current Visit: No Status: Chronic (20) Schizoaffective disorder Current Visit: No Status: Chronic (21) Hepatitis C Current Visit: No Status: Resolved - AMA Did Patient Leave Against Medical Advice: No
[2019-09-16] MEDS: PANTOPRAZOLE 40 MG TABLET (FP) PO SCH (09:52)
[2019-09-16] MEDS: DOCUSATE SODIUM 100 MG CAPSULE (FP) PO SCH (09:52)
[2019-09-16] MEDS: PRENATAL VITAMINS W/ FOLIC ACID TABLET (FP) PO SCH (09:52)
[2019-09-16] MEDS: NICOTINE 14 MG/24 HOURS TOPICAL PATCH TD SCH (10:02)
[2019-09-16 11:12] LABS: PH,URINE 5.5 (5.0-8.0); URINE APPEARANCE CLEAR; URINE BILIRUBIN NEGATIVE (NEGATIVE); URINE COLOR YELLOW; URINE GLUCOSE (UA) NEGATIVE (NEGATIVE); URINE KETONE NEGATIVE (NEGATIVE); URINE LEUK ESTERASE NEGATIVE (NEGATIVE); URINE NITRITE NEGATIVE (NEGATIVE); URINE PROTEIN NEGATIVE (NEGATIVE); URINE UROBILINOGEN 0.2 mg/dL (0.2-1.0)
== END 2019-09-16 09:50 | disposition home or self-care (01) | DRG 773 ==
LOC: YASAS 14:32 → Y6N 20:59
PROVIDERS: ADMIT Allergy & Immunology; ATTEND Allergy & Immunology
PROC: HZ2ZZZZ Detoxification Services for Substance Abuse Treatment (ICD-10-PCS; principal; 2019-09-12)
DX: F10.230 Alcohol dependence with withdrawal, uncomplicated (principal); F11.20 Opioid dependence, uncomplicated; F13.20 Sedative, hypnotic or anxiolytic dependence, uncomplicated; F14.20 Cocaine dependence, uncomplicated; F12.20 Cannabis dependence, uncomplicated; F17.210 Nicotine dependence, cigarettes, uncomplicated; F19.282 Other psychoactive substance dependence with psychoactive substance-induced sleep disorder; F19.24 Other psychoactive substance dependence with psychoactive substance-induced mood disorder; F31.9 Bipolar disorder, unspecified; F25.9 Schizoaffective disorder, unspecified; J45.20 Mild intermittent asthma, uncomplicated; K08.89 Other specified disorders of teeth and supporting structures; Z86.19 Personal history of other infectious and parasitic diseases; Z91.5 Personal history of self-harm
CPT/HCPCS: 81003